=== PATIENT | male | born 1990 | race Two or more races ===

== ENCOUNTER 2022-06-03 10:19 | Emergency (ER) | payer OTHER, SELFPAY ==
[2022-06-03 10:24] VITALS: BP 128/83; PULSE 83; RESP 18; TEMP 36.6; O2SAT 97; BMI 33.9
--- NOTE | 2022-06-03 11:10 | ED_ITS ---
HPI - General Adult General Chief complaint: Upper Respiratory Symptoms Stated complaint: L arm pain/R shoulder pain Time Seen by Provider: 06/03/22 11:09 Source: patient Mode of arrival: ambulatory Limitations: no limitations History of Present Illness HPI narrative: Patient is a 31 year old assigned male at with no reported medical history presenting to the emergency department today with left wrist pain and right shoulder pain. Patient states that a few days ago he started having left wrist pain so he was using his right arm more and now he is having right shoulder pain and left wrist pain. Patient denies any dizziness, lightheadedness, abdominal pain, nausea, vomiting, fever, chills, blurry vision, double vision, loss of vision, chest pain, difficulty breathing, shortness of breath, back pain, night sweats, pain with urination, increased urinary frequency, increased urinary urgency, blood in his urine or stool, syncope or a near syncopal episode, recent trauma or falls, bowel incontinence, bladder incontinence, bowel retention, bladder retention, or any other complaints at this time. Onset (ago): day(s) Location: left, right and upper extremity Severity: mild Severity scale (1-10): 2 Quality: aching and dull Pain Consistency: intermittent Relieving factors: none Exacerbating factors: movement Associated symptoms: denies other symptoms Treatments prior to arrival: none Related Data Previous Rx's Medication Instructions Recorded prednisone 20 mg tablet 20 mg PO DAILY 7 days #7 tabs 06/03/22 Allergies Allergy/AdvReac Type Severity Reaction Status Date / Time No Known Allergies Allergy Verified 06/03/22 10:24 Review of Systems Constitutional: Constitutional: Reports no additional constitutional complaints, Denies chills, Denies fever(s) and Denies night sweats Eyes: Eyes: Reports no additional eye complaints, Denies blurry vision, Denies change in vision, Denies diplopia, Denies eye discharge, Denies loss of vision and Denies eye pain ENT: Denies dizziness Cardiovascular: Cardiovascular: Reports no additional cardiovascular complaints, Denies chest pain, Denies lightheadedness, Denies Loss of Consciousness and Denies dyspnea Respiratory: Respiratory: Reports no additional respiratory complaints and Denies dyspnea Gastrointestinal: Gastrointestinal: Reports no additional gastrointestinal complaints, Denies abdominal pain, Denies melena, Denies hematochezia, Denies change in bowel habits and Denies change in stool character Genitourinary: Genitourinary: Reports no additional male genitourinary complaints, Denies hematuria, Denies oliguria, Denies difficulty urinating, Denies dysuria, Denies urinary frequency, Denies urinary hesitancy, Denies urinary incontinence and Denies urinary urgency Musculoskeletal: Musculoskeletal: Reports no additional musculoskeletal complaints, Denies numbness and Denies tingling Comments: right shoulder pain, left wrist pain Neurologic: Denies dizziness, Denies loss of vision, Denies numbness and Denies tingling Psychiatric: Psychiatric: Reports no additional psychiatric complaints Endocrine: Endocrine: Reports no additional endocrine complaints Hematologic/Lymphatic: Hematologic/Lymphatic: Reports no additional hematologic/lymphatic complaints Allergic/Immunologic: Allergic/Immunologic: Reports no additional allergic/ immunologic complaints PMFSH Past Medical History Attestation statement: The following information was validated with the patient. Source: old records reviewed and nursing notes reviewed Social History Social History Advance Directives: No Advance Directives Information Provided: No Physical Exam ED Vital Signs: Vital Signs - 24 hr 06/03/22 10:24 Temperature 97.8 F Pulse Rate 83 Respiratory Rate 18 Blood Pressure 128/83 Pulse Oximetry 97 Oxygen Delivery Method Room Air BMI result Body Mass Index 33.9 Const General: cooperative, no acute distress, alert and awake Nutritional Appearance: well nourished Orientation/consciousness: patient oriented x3 Limitations: no limitations HENMT Head: Yes normal to inspection and Yes atraumatic Ears: hearing grossly normal bilaterally and external ears normal General nose exam: Normal external nose present, no nasal discharge noted and no epistaxis Face and sinus: Yes normal facial exam, No abrasion and No laceration Mouth: Normal oral and palatal mucosa present, no drooling and no muffled voice Eyes General: appearance normal, both eyes and all related structures Periorbital: periorbital findings normal Eyelids: Yes eyelids normal Conjunctivae: conjunctivae normal Pupils: Equal, round and reactive pupils present EOM: EOMs intact bilaterally Neck Neck: Yes normal visual inspection, Yes full ROM and Yes no lymphadenopathy Chest Chest palpation & inspection: normal inspection of the chest Resp Effort & Inspection: normal respiratory effort and able to speak in complete sentences Auscultation: clear to auscultation bilaterally Cardio Rate: regular rate Rhythm: regular rhythm GI Inspection: Yes normal to inspection Neuro General: patient oriented x3 and moves all extremities Cranial nerves: Yes Equal, round and reactive pupils present Cognition (Neuro): normal cognition Motor exam (neuro): 5/5 motor strength present throughout Sensory Exam: Normal double simultaneous stimulation for sensation Coordination: [id number] test normal Extrem General: Yes normal to inspection, Yes full ROM and Yes capillary refill normal Psych Appearance: grossly normal Mental Status: mental status grossly normal Affect: normal affect Attitude: cooperative Thought process: Normal thought process present Thought content: Normal thought content present Insight: Good insight present (Psych) Medical Decision Making Medical Decision Making MDM Narrative: Patient is a 31 year old assigned male at with no reported medical history presenting to the emergency department today with right shoulder and left wrist pain. Patient's physical exam was unremarkable. Patient's clinical presentation is most consistent with muscle strains. I explained my physical exam findings to the patient. I answered all questions asked by the patient. I stressed the importance of the patient taking his medication as prescribed. I stressed the importance of the patient following up with his primary care provider. I stressed the importance of the patient returning to the emergency department immediately if his symptoms were to worsen or if he were to develop any dizziness, shortness of breath, difficulty breathing, chest pain, blurry vision, loss of vision, nausea, vomiting, abdominal pain, fever, chills, back pain, or any other complaints. Patient verbalized agreement and understanding with this treatment plan and discharge. Differential Diagnosis The differential diagnosis associated with the presentation includes diagnosis of: muscle strain Discharge Plan Discharge Clinical Impression: Left wrist pain, Acute pain of right shoulder Patient Disposition: Home, Self-Care Instructions: Arm Pain (ED) Additional Instructions: Follow up with your primary care provider. If pain persists >2 weeks, follow up with an orthopedic provider. Return to the emergency department immediately if your symptoms worsen or if you develop any dizziness, shortness of breath, difficulty breathing, chest pain, blurry vision, loss of vision, nausea, vomiting, abdominal pain, fever, chills, back pain, or any other complaints. Prescriptions: New prednisone 20 mg tablet 20 mg PO DAILY 7 Days Qty: 7 0RF Referrals: [facility] [place] [facility] [Provider Group] (Call to establish and follow up with a primary care provider. If you already have a primary care provider, please follow up with them. ) [facility] [place] [facility] [Provider Group] (Call to establish and follow up with a primary care provider. If you already have a primary care provider, please follow up with them. ) [facility] [place] [facility] [Provider Group] (Call to establish and follow up with a primary care provider. If you already have a primary care provider, please follow up with them. ) [facility] [place] [facility] [Provider Group] (If pain persists >2 weeks, call to establish and follow up with an orthopedic provider.) Stand Alone Forms: Work/School Release Interventions: ED Discharge Assessment Last Done: 06/03/22 11:35 Discharge Date/Time: 06/03/22 11:36 Print Language: Thai
== END 2022-06-03 11:36 | disposition home or self-care (01) ==
LOC: HO.ED 11:24
PROVIDERS: Emergency Provider Emergency Medicine
DX: M25.532 Pain in left wrist (principal); G89.11 Acute pain due to trauma; M25.511 Pain in right shoulder
CPT/HCPCS: 99283

== ENCOUNTER 2022-10-24 07:43 | Emergency (ER) | payer MEDICAID, SELFPAY ==
--- NOTE | ~2022-10-24 | XR_ITS ---
EXAMINATION: XR HAND, LEFT CLINICAL INFORMATION: Left hand pain status post laceration. COMPARISON: None available. TECHNIQUE: PA, lateral, and oblique views of the left hand. An indicator arrow points to the lateral soft tissues. FINDINGS: Soft tissue deformity seen lateral to the fifth metacarpophalangeal joint space. No radiopaque foreign body is seen. There is no acute fracture or dislocation. The joint spaces are unremarkable. XR/XR hand LT 2V IMPRESSION: Soft tissue deformity adjacent to the fifth metacarpal without radiopaque foreign body or acute underlying osseous abnormality.
[2022-10-24 07:48] VITALS: BP 151/83; PULSE 93; RESP 16; TEMP 36.1; O2SAT 96; BMI 35.3
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
[2022-10-24] MEDS: Diphth,Pertus(ACell),Tet Adult 0.5 ML SYRINGE IM (09:07)
[2022-10-24] MEDS: Lidocaine HCl 1 % MPF 2 ML VIAL INFILTRATI ×2 (09:07)
== END 2022-10-24 10:35 | disposition home or self-care (01) ==
PROVIDERS: Emergency Provider Emergency Medicine
DX: S61.412A Laceration without foreign body of left hand, initial encounter (principal); X99.1XXA Assault by knife, initial encounter; Y93.89 Activity, other specified; Y92.511 Restaurant or cafe as the place of occurrence of the external cause; Y99.9 Unspecified external cause status
CPT/HCPCS: 12002; 73120; 90471; 90715; 99282; 99284

== ENCOUNTER 2022-10-30 09:40 | Emergency (ER) | payer MEDICAID, SELFPAY ==
[2022-10-30 09:54] VITALS: BP 154/76; PULSE 77; RESP 16; TEMP 36.8; O2SAT 98; BMI 35.3
--- NOTE | 2022-10-30 12:24 | ED_ITS ---
HPI - Fever General Chief Complaint: Wound/Laceration Stated Complaint: Fever Sweaty Time Seen by Provider: 10/30/22 12:06 Source: patient Mode of arrival: ambulatory Limitations: no limitations History of Present Illness HPI Narrative: 31 yo male here with complaints of waking feeling sweaty/tactile temps. Patient wants his left hand laceration checked (had sutures placed on 10/24, taking augmentin as prescrbed). Feels hand is healing well. denies redness, swelling drainage, odor. No other complaints. Related Data Previous Rx's Medication Instructions Recorded prednisone 20 mg tablet 20 mg PO DAILY 7 days #7 tabs 06/03/22 amoxicillin 875 mg-potassium 1 tab PO BID #14 tabs 10/24/22 clavulanate 125 mg tablet Allergies Allergy/AdvReac Type Severity Reaction Status Date / Time No Known Allergies Allergy Verified 10/30/22 09:58 Review of Systems Review of Systems: Yes all other systems are reviewed and are negative Constitutional: Constitutional: Reports no additional constitutional complaints, Denies body ache(s), Reports chills, Reports fever(s), Denies headache(s) and Denies weakness Eyes: Eyes: Reports no additional eye complaints and Denies change in vision ENT: Reports system reviewed and no additional complaints, except as documented, Denies dizziness, Denies headache(s), Denies nasal congestion, Denies nasal discharge and Denies neck pain Cardiovascular: Cardiovascular: Reports no additional cardiovascular complain ts, Denies chest pain, Denies leg edema and Denies dyspnea Respiratory: Respiratory: Reports no additional respiratory complaints, Denies cough and Denies dyspnea Gastrointestinal: Gastrointestinal: Reports no additional gastrointestinal complaints, Denies abdominal pain, Denies diarrhea, Denies nausea and Denies vomiting Genitourinary: Genitourinary: Denies urinary incontinence Musculoskeletal: Musculoskeletal: Reports no additional musculoskeletal complaints, Denies back pain, Denies arthralgias, Denies joint swelling, Denies neck pain, Denies numbness and Denies tingling Integumentary/Breasts: Skin/Breast: Reports system reviewed and no additional complaints, except as docu and Denies rash Neurologic: Reports system reviewed and no additional complaints, except as documented, Denies Abnormal speech present, Denies dizziness, Denies headache(s), Denies numbness, Denies tingling and Denies weakness [facility] Past Medical History Attestation statement: The following information was validated with the patient. Source: old records reviewed and nursing notes reviewed Social History Social History Advance Directives: No Advance Directives Information Provided: Yes Physical Exam Vital Signs: Vital Signs: Last Vital Signs Temp 98.2 F 10/30/22 09:54 Pulse 77 10/30/22 09:54 Resp 16 10/30/22 09:54 BP 154/76 H 10/30/22 09:54 Pulse Ox 98 10/30/22 09:54 O2 Del Method Room Air 10/30/22 09:54 BMI result Body Mass Index 35.3 Const: General: cooperative, healthy appearing, comfortable and no acute distress Orientation/consciousness: patient oriented x3 Limitations: no limitations HEENT: Head: Yes normal to inspection Ears: hearing grossly normal bilaterally General nose exam: Normal external nose present Face and sinus: Yes normal facial exam Mouth: Normal oral and palatal mucosa present Throat: Yes posterior oropharynx normal Eyes: General: appearance normal, both eyes and all related structures Pupils: Equal, round and reactive pupils present Neck: Neck: Yes normal visual inspection, Yes full ROM, Yes no lymphadenopathy and Yes no meningeal signs Chest: Chest palpation & inspection: normal inspection of the chest Resp: Effort & Inspection: normal respiratory effort Auscultation: clear to auscultation bilaterally Cardio: Rate: regular rate Rhythm: regular rhythm Peripheral pulses: Peripheral pulses 2+ throughout GI: Inspection: Yes normal to inspection Palpation (GI): Soft to palpation and nontender Auscultation: normal bowel sounds Back/Spine/Pelvis: Thoracic/Lumbar Spine: thoracic and lumbar spine normal to inspection Skin: General skin exam: no rashes or lesions noted Neuro: General: patient oriented x3, no meningeal signs, no focal motor deficits and normal sensation to monofilament Cranial nerves: Yes Equal, round and reactive pupils present Cognition (Neuro): normal cognition Speech: No Abnormal speech present Gait exam (Neuro): Normal gait present Motor exam (neuro): 5/5 motor strength present throughout Extrem: Other: laceration present left hand. no erythema, swelling, drainage. FROM of hand General: Yes normal to inspection Course Course Course Narrative: COVID and flu testing are negative. Likely viral syndrome. Laceration over the hand has no signs of infection. Recommend follow-up in a few days for suture removal. Reviewed worrisome signs and symptoms and when to return to the emergency room. Comfortable plan for discharge home Medical Decision Making Medical Decision Making [facility] Narrative: 31 yo male here with concern for tactile temp/ chills this morning with no other symptoms. Also wants left hand laceration checked. Normal exam. No focal finding. Afebrile here Will send testing for COVID in place Hand laceration is healing well. No signs of infection. I do recommend patient continue augmentin. It too soon to remove the sutures. Differential Diagnosis Differential Diagnoses: The differential diagnosis associated with the presentation includes Lab Data Labs: Lab Results 10/30/22 10/30/22 Range/Units 12:46 12:46 COVID-19 ([facility]) Negative (Negative) COVID-19 Clin Com See Note Influenza Type A ([facility]) Negative (Negative) Influenza Type B ([facility]) Negative (Negative) Influenza A & B Note See Note Discharge Plan Discharge Clinical Impression: Acute viral syndrome Patient Disposition: Home, Self-Care Instructions: Viral Syndrome (ED) Additional Instructions: Your testing for flu and COVID are negative. Return in 2-3 days to have your sutures removed. Continue your antibiotics Prescriptions: No Action prednisone 20 mg tablet 20 mg PO DAILY 7 Days Qty: 7 0RF amoxicillin-pot clavulanate 875-125 mg tablet 1 tab PO BID Qty: 14 0RF Referrals: Physician,None [Primary Care Provider] - 1 week Stand Alone Forms: Work/School Release Interventions: ED Discharge Assessment Last Done: 10/30/22 13:33 Discharge Date/Time: 10/30/22 13:34
[2022-10-30 13:15] LABS: COVID-19 Test Negative (Negative); IDNOW Serial# 08D9AD1C; IDNOW Serial# BCCEAD1C; Influenza A Negative (Negative); Influenza B2 Negative (Negative)
== END 2022-10-30 13:34 | disposition home or self-care (01) ==
PROVIDERS: Nurse Practitioner Family; Emergency Provider Emergency Medicine Emergency Medical Services
DX: B34.9 Viral infection, unspecified (principal); R50.9 Fever, unspecified; Z20.822 Contact with and (suspected) exposure to COVID-19
CPT/HCPCS: 87502; 87635; 99282; 99283

== ENCOUNTER 2022-11-04 11:21 | Emergency (ER) | payer MEDICAID, SELFPAY ==
[2022-11-04 11:53] VITALS: BP 135/64; PULSE 93; RESP 18; TEMP 36.8; O2SAT 98; BMI 35.3
--- NOTE | 2022-11-04 11:58 | ED_ITS ---
HPI - General Adult General Chief complaint: General Medical Stated complaint: Suture removal Time Seen by Provider: 11/04/22 11:53 Source: patient Mode of arrival: ambulatory Limitations: no limitations History of Present Illness HPI narrative: 31-year-old male here for suture removal from left hand which were placed on October 24. Patient with no complaints Related Data Previous Rx's Medication Instructions Recorded prednisone 20 mg tablet 20 mg PO DAILY 7 days #7 tabs 06/03/22 amoxicillin 875 mg-potassium 1 tab PO BID #14 tabs 10/24/22 clavulanate 125 mg tablet Allergies Allergy/AdvReac Type Severity Reaction Status Date / Time No Known Allergies Allergy Verified 11/04/22 11:53 Review of Systems Review of Systems: Yes all other systems are reviewed and are negative Constitutional: Constitutional: Reports no additional constitutional complaints, Denies body ache(s), Denies chills, Denies fever(s), Denies headache(s) and Denies weakness Eyes: Eyes: Reports no additional eye complaints and Denies change in vision ENT: Reports system reviewed and no additional complaints, except as d ocumented, Denies dizziness, Denies headache(s), Denies nasal congestion, Denies nasal discharge and Denies neck pain Cardiovascular: Cardiovascular: Reports no additional cardiovascular complaints, Denies chest pain, Denies leg edema and Denies dyspnea Respiratory: Respiratory: Reports no additional respiratory complaints, Denies cough and Denies dyspnea Gastrointestinal: Gastrointestinal: Reports no additional gastrointestinal complaints, Denies abdominal pain, Denies diarrhea, Denies nausea and Denies vomiting Genitourinary: Genitourinary: Denies urinary incontinence Musculoskeletal: Musculoskeletal: Reports no additional musculoskeletal complaints, Denies back pain, Denies arthralgias, Denies joint swelling, Denies neck pain, Denies numbness and Denies tingling Integumentary/Breasts: Skin/Breast: Reports system reviewed and no additional complaints, except as docu and Denies rash Neurologic: Reports system reviewed and no additional complaints, except as documented, Denies dizziness, Denies headache(s), Denies numbness, Denies tingling and Denies weakness [facility] Past Medical History Attestation statement: The following information was validated with the patient. Source: old records reviewed and nursing notes reviewed Social History Social History Advance Directives: No Advance Directives Information Provided: Yes Physical Exam ED Vital Signs: Vital Signs - 24 hr 11/04/22 11:53 Temperature 98.2 F Pulse Rate 93 Respiratory Rate 18 Blood Pressure 135/64 Pulse Oximetry 98 Oxygen Delivery Method Room Air BMI result Body Mass Index 35.3 Const General: cooperative, healthy appearing, comfortable and no acute distress Orientation/consciousness: patient oriented x3 Limitations: no limitations HENMT Head: Yes normal to inspection Ears: hearing grossly normal bilaterally Eyes General: appearance normal, both eyes and all related structures Neck Neck: Yes normal visual inspection Chest Chest palpation & inspection: normal inspection of the chest Resp Effort & Inspection: normal respiratory effort Cardio Peripheral pulses: Peripheral pulses 2+ throughout Skin Other: To left hand to the palmar aspect there is a laceration present with approximated edges and 8 sutures present with no signs of redness, drainage, swelling. Full range of motion of the hand with no difficulty with both passive and active range of Neuro General: patient oriented x3 Procedures Procedure Narrative Procedure Narrative: 8 sutures removed from left hand. Site was cleansed with saline and a topical dressing was applied Medical Decision Making Medical Decision Making [facility] Narrative: 31-year-old male here for suture removal. No complaints. Edges are approximated. No signs of infection. See procedure note Discharge Plan Discharge Clinical Impression: Visit for suture removal Patient Disposition: Home, Self-Care Instructions: Stitches Removal (ED) Prescriptions: No Action prednisone 20 mg tablet 20 mg PO DAILY 7 Days Qty: 7 0RF amoxicillin-pot clavulanate 875-125 mg tablet 1 tab PO BID Qty: 14 0RF
== END 2022-11-04 12:01 | disposition home or self-care (01) ==
PROVIDERS: Emergency Provider Student in an Organized Health Care Education/Training Program
DX: Z48.02 Encounter for removal of sutures (principal)
CPT/HCPCS: 99282

== ENCOUNTER 2023-07-03 08:19 | Emergency (ER) | payer OTHER, SELFPAY ==
--- NOTE | ~2023-07-03 | XR_ITS ---
EXAMINATION: XR LEFT ANKLE XR LEFT FOOT CLINICAL INFORMATION: No history of trauma. Left foot and ankle pain. COMPARISON: 01/07/2014 TECHNIQUE: AP, lateral, and oblique views of the left ankle were obtained. AP, lateral and oblique views of the left foot were obtained. FINDINGS: Alignment is anatomic. Ankle mortise is maintained. The talar dome is intact. Joint spaces are preserved. No displaced fracture or dislocation. XR/XR ankle LT 2V IMPRESSION: No acute abnormality.
--- NOTE | ~2023-07-03 | XR_ITS ---
EXAMINATION: XR LEFT ANKLE XR LEFT FOOT CLINICAL INFORMATION: No history of trauma. Left foot and ankle pain. COMPARISON: 01/07/2014 TECHNIQUE: AP, lateral, and oblique views of the left ankle were obtained. AP, lateral and oblique views of the left foot were obtained. FINDINGS: Alignment is anatomic. Ankle mortise is maintained. The talar dome is intact. Joint spaces are preserved. No displaced fracture or dislocation. XR/XR foot LT 2V IMPRESSION: No acute abnormality.
[2023-07-03 08:27] VITALS: BP 121/86; PULSE 82; RESP 18; TEMP 36.6; O2SAT 97; BMI 33.9
--- NOTE | 2023-07-03 08:51 | ED.LOWEXIN ---
HPI - Extremity Injury (Lower) General Chief Complaint: Extremity Injury, Lower Stated Complaint: l ankle inj Time Seen by Provider: 07/03/23 08:41 Source: patient Mode of arrival: ambulatory Limitations: no limitations History of Present Illness HPI Narrative: A 32-year-old male came in for evaluation of left ankle/ foot pain. Patient was playing basketball do not remember hurting his left ankle or foot yesterday, woke up today with swelling of the left ankle with severe pain, unable to bear weight on the left foot / ankle due to pain. Patient declined any trauma, ankle twist, fall. Related Data Previous Rx's Medication Instructions Recorded prednisone 20 mg tablet 20 mg PO DAILY 7 days #7 tabs 06/03/22 amoxicillin 875 mg-potassium 1 tab PO BID #14 tabs 10/24/22 clavulanate 125 mg tablet Allergies Allergy/AdvReac Type Severity Reaction Status Date / Time No Known Allergies Allergy Verified 07/03/23 08:27 Review of Systems Review of Systems: all other systems are reviewed and are negative Constitutional: Reports as per HPI and Reports no additional constitutional complaints Eyes: Reports as per HPI and Reports no additional eye complaints Reports system reviewed and no additional complaints, except as documented Cardiovascular: Reports as per HPI and Reports no additional cardiovascular complaints Respiratory: Reports as per HPI and Reports no additional respiratory complaints Gastrointestinal: Reports as per HPI and Reports no additional gastrointestinal complaints Genitourinary: Reports no additional female genitourinary complaints Musculoskeletal: Reports no additional musculoskeletal complaints Skin/Breast: Reports system reviewed and no additional complaints, except as docu Psychiatric: Reports no additional psychiatric complaints Endocrine: Reports no additional endocrine complaints Hematologic/Lymphatic: Reports no additional hematologic/lymphatic complaints Allergic/Immunologic: Reports no additional allergic/immunologic complaints Reports system reviewed and no additional complaints, except as documented and Reports Abnormal speech present [facility] Social History Social History Advance Directives: No Physical Exam Vital Signs: Vital Signs: Last Vital Signs Temp 98 F 07/03/23 08:27 Pulse 82 07/03/23 08:27 Resp 18 07/03/23 08:27 BP 121/86 07/03/23 08:27 Pulse Ox 97 07/03/23 08:27 O2 Del Method Room Air 07/03/23 08:27 BMI result Body Mass Index 33.9 Vital signs have been reviewed and appear to be correct. Blood pressure elevated. Heart rate normal. Respiratory rate normal. Temperature normal. Oxygen saturation normal. Appearance: Alert. Oriented X3. No acute distress. Head: Normal external exam. Normocephalic. Atraumatic. No Barlow signs noted. No raccoon eyes noted Eyes: PERRLA. EOMI. Conjunctiva and sclera normal. Eyelids normal. ENT: TM's Normal. Pharynx normal. Uvula midline. Moist mucous membranes. No trismus noted. No drooling noted. No muffled voice noted. Neck: Normal inspection. Neck supple. FROM. No adenopathy. Thyroid Normal. No meningeal signs. No neck mass noted. CVS: Normal heart rate and rhythm. Heart sound normal. No murmurs noted. Pulses normal throughout. Respiratory: No respiratory distress. Painless inspiration. Breath sounds normal. No wheezes/rales/rhonchi noted. Chest nontender. No accessory muscle usage noted or decreased air movement noted. Abdomen: Soft and nontender. Bowel sounds normal in all 4 quadrants. No distention noted. No organomegaly noted. No visible injury noted. Back: No CVA tenderness. Full range of motion noted. Skin: Skin warm and dry. Normal skin color. Normal skin turgor. No rashes/lesions/lacerations noted. Extremities: left ankle swelling tenderness over lateral malleolus, no deformity, no step-off. Neuro: Oriented X 3. Cranial nerve exam: II-XII are grossly intact No motor deficit. No sensory deficit. Reflexes normal. Course Reevaluation(s) Reevaluation #1: left ankle/ left foot pain likely sprain after playing basketball no definite trauma to the ankle or foot. Ice/ibuprofen/ crutches/ [place] bandage. Time: 09:56 Medications Administered Discontinued Medications Generic Name Dose Route Start Last Admin Trade Name Freq PRN Reason Stop Dose Admin Ibuprofen 800 mg 07/03/23 08:50 07/03/23 09:17 Ibuprofen 800 Mg Tablet PO 07/03/23 08:51 800 mg ONCE ONE Administration Medical Decision Making Differential Diagnosis Differential Diagnoses: The differential diagnosis associated with the presentation includes ( Left ankle fracture, left foot fracture, left ankle / foot sprain.) Admission/Observation Consideration of admission/observation: Escalation of care including admission/observation considered Independent Interpretation I performed an independent interpretation of an: Plain X-Ray ( Left ankle/foot: No acute abnormality) Radiology Impression Discussion of test interpretation with radiology: I have reviewed the radiologist's reading. Discharge Plan Discharge Clinical Impression: Ankle sprain and strain Patient Disposition: Home, Self-Care Instructions: Ankle Sprain (ED) Prescriptions: No Action prednisone 20 mg tablet 20 mg PO DAILY 7 Days Qty: 7 0RF amoxicillin-pot clavulanate 875-125 mg tablet 1 tab PO BID Qty: 14 0RF Referrals: Delroy Gregg MD [Physician] - Stand Alone Forms: Work/School Release
[2023-07-03] MEDS: Ibuprofen 800 MG TABLET PO (09:17)
== END 2023-07-03 10:10 | disposition home or self-care (01) ==
PROVIDERS: Emergency Provider Emergency Medicine
DX: S93.402A Sprain of unspecified ligament of left ankle, initial encounter (principal); S96.912A Strain of unspecified muscle and tendon at ankle and foot level, left foot, initial encounter; X50.3XXA Overexertion from repetitive movements, initial encounter; Y93.67 Activity, basketball; Y92.310 Basketball court as the place of occurrence of the external cause; Y99.9 Unspecified external cause status
CPT/HCPCS: 73600; 73620; 99283; 99284

== ENCOUNTER 2024-04-27 15:01 | Emergency (ER) | payer OTHER, SELFPAY ==
--- NOTE | ~2024-04-27 | CT_ITS ---
EXAMINATION: CT HEAD WITHOUT CONTRAST CLINICAL INFORMATION: Fall with head strike COMPARISON: None available. TECHNIQUE: Contiguous axial imaging was performed from the skull base to vertex without intravenous administration of contrast. This CT examination was performed using dose optimization techniques as appropriate, variously including the following: *Automated exposure control *Adjustment of mA and/or kV according to patient size (this includes techniques or standardized protocols for targeted exams where dose is matched to indication/reason for exam; i.e. extremities or head) *Use of iterative reconstruction technique DLP: 842 mGy-cm FINDINGS: No intra or extra-axial fluid collection, hemorrhage, mass, or mass effect. Sulci and ventricles are age-appropriate. Calvarium is intact. Note is made of moderate mucoperiosteal thickening within the right maxillary sinus. The retrobulbar regions are intact. CT/CT head/brain wo IV con IMPRESSION: No acute intracranial pathology. Electronically signed by: Marco Hay MD 04/27/2024 05:36 PM [facility]
--- NOTE | ~2024-04-27 | CT_ITS ---
EXAMINATION: CT CERVICAL SPINE WITHOUT CONTRAST CLINICAL INFORMATION: Fall with head strike. COMPARISON: None available. TECHNIQUE: Thin section axial imaging with sagittal and coronal reformats. This CT examination was performed using dose optimization techniques as appropriate, variously including the following: *Automated exposure control *Adjustment of mA and/or kV according to patient size (this includes techniques or standardized protocols for targeted exams where dose is matched to indication/reason for exam; i.e. extremities or head) *Use of iterative reconstruction technique DLP: 672 mGy-cm FINDINGS: There is moderate narrowing at C5-6 with anterior and posterior spurring. No fracture or destructive process. No evidence for encroachment on the spinal canal. CT/CT cervical spine wo IV con IMPRESSION: No fracture or destructive process. Fleischner guidelines were followed. Electronically signed by: Marco Hay MD 04/27/2024 05:42 PM [facility]
[2024-04-27 15:08] VITALS: BP 125/89; PULSE 102; O2SAT 96
[2024-04-27 15:14] VITALS: BP 127/79; PULSE 97; RESP 18; TEMP 36.9; O2SAT 94; BMI 33.9
--- NOTE | 2024-04-27 15:47 | ED.FALL ---
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 Reports slip and fall at home, striking the left side of his head on the edge of his dresser. He denies LOC. Not on anticoagulation. Reports the area immediately began to bleed, prompting him to call EMS. Admits to headache at present. No other concerns. He does arrive in cervical collar however states that he was not having any neck pain post fall. Denies any preceding symptoms of dizziness, vision changes, chest pain, shortness of breath, palpitations. Related Data Previous Rx's ?Medication ?Instructions ?Recorded prednisone 20 mg tablet 20 mg PO DAILY 7 days #7 tabs 06/03/22 amoxicillin 875 mg-potassium 1 tab PO BID #14 tabs 10/24/22 clavulanate 125 mg tablet ibuprofen 600 mg tablet 600 mg PO Q8H PRN pain (scale 04/27/24 score 1-3) #20 tabs Allergies Allergy/AdvReac Type Severity Reaction Status Date / Time No Known Allergies Allergy Verified 04/27/24 15:14 Review of Systems Review of Systems: Constitutional: No fever, chills, fatigue, night sweats, weight changes ENT/Mouth: No ear pain, hearing loss, nasal congestion, sinus pain, rhinorrhea, sore throat Eyes: No eye pain, swelling, redness, vision changes, discharge Cardio: No chest pain, palpitations, CABALLERO, orthopnea, peripheral edema Pulm: No SOB, cough, sputum, wheezing, dyspnea, hemoptysis GI: No nausea, vomiting, hematemesis, abdominal pain, diarrhea, constipation, hematochezia, melena : No irregular bleeding, dysuria, frequency, urgency, hesitancy, hematuria, flank pain, urinary flow changes, urinary incontinence or retention MSK: No back pain, neck pain, joint pain, myalgias Skin: No lesions, rashes, +scalp laceration Neuro: No weakness, numbness, paresthesias, LOC, dizziness, +headache Psych: No anxiety/panic, depression, SI/HI, AH/VH All other systems reviewed and are negative. [facility] Past Medical History Attestation statement: The following information was validated with the patient. Source: old records reviewed and nursing notes reviewed Social History Social History Advance Directives: No Advance Directives Information Provided: Yes Physical Exam Vital Signs: Vital Signs: Last Vital Signs Temp 98.4 F 04/27/24 15:14 Pulse 97 04/27/24 15:14 Resp 18 04/27/24 15:14 BP 127/79 04/27/24 15:14 Pulse Ox 94 04/27/24 15:14 O2 Del Method Room Air 04/27/24 15:14 BMI result Body Mass Index 33.9 vital signs stable General: Well appearing, in no acute distress. Skin: Warm, dry, intact. No rashes or lesions. Head: +5cm linear laceration noted to left parietal region. bleeding controlled. no involvement of deeper structures. no palpable hematoma or skull fracture. no raccon eyes. no battles sign. EENT: Hearing is intact b/l. Conjunctiva clear. PERRLA. EOM intact w/o entrapment. Moist mucous membranes.? Neck: no midline c spine tenderness or step off. FROM intact. Cardiac: Chest wall symmetric. RRR. Lungs: Normal respiratory effort without accessory muscle use. CTA bilaterally. Abdomen: Soft, non-tender, non-distended. No rebound tenderness or guarding Back: No midline spinous or paraspinal tenderness. No step off deformity. Ext: Upper and lower extremities atraumatic, without tenderness, deformity, swelling or erythema. Full ROM throughout. Neuro: AOx3. Normal speech. Strength 5/5 intact throughout. Sensation intact to light touch. NV intact distally. Reflexes 2+ bilaterally. Ambulating with steady gait. Psych: Appropriate mood and affect. Responds appropriately to questions. Course Course Course Narrative: 1749 -- CT head/ brain without bleed or skull fracture. Ct cervical spine without fracture or subluxation. scalp laceration extensively cleaned with iodine and saline. Seven cricket applied. Patient tolerated well. Bleeding controlled. Advised patient to return in 7-10 days for staple removal. tdap updated today. morphine given for pain control. he will be getting a ride home from family. Patient has remained stable throughout ED visit today. Discussed worrisome signs and symptoms and when to return to the ED. All questions answered at this time. Patient is agreeable with disposition and stable for discharge. Medications Administered Discontinued Medications Generic Name Dose Route Start Last Admin Trade Name Freq PRN Reason Stop Dose Admin Diphtheria/Tetanus/Acell Pertussis 0.5 ml 04/27/24 15:52 04/27/24 16:10 Diphth,Pertus(Acell),Tet Adult 0.5 Ml Syringe IM 04/27/24 15:53 0.5 ml .ONCE ONE Administration Morphine Sulfate 15 mg 04/27/24 15:52 04/27/24 16:03 Morphine Sulfate Immed Release 15 Mg Tablet PO 04/27/24 15:53 15 mg ONCE ONE Administration Procedures Laceration Laceration 1: Site: scalp Side (If applicable): left Size (cm): 5 Description: linear Depth: simple, single layer Pre-repair: wound explored, irrigated extensively and deep structures intact Skin layer closed with: other (cricket) Number of sutures: 7 Medical Decision Making Medical Decision Making MDM Narrative: 33 year old male with no significant pmhx presents to the ED today via EMS from home for evaluation of scalp laceration s/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 Vital signs stable. he is nontoxic appearing and in NAD. presents in cervical collar. on removal, there is no midline cervical spinous tenderness or step-off deformity. There is a 5 cm linear laceration noted to left parietal region. Bleeding controlled. Deeper structures intact. No palpable hematoma or skull fracture. EOMs intact without entrapment or pain. Exam is nonfocal. PERRLA. Differential diagnosis includes concussion, scalp laceration, abrasion, hematoma. Lower suspicion for CVA/TIA, ICH. Unlikely TBI, cervical fracture, skull fracture. Plan for imaging, pain control, Tdap booster, laceration repair, re-evaluation. Differential Diagnosis Differential Diagnoses: The differential diagnosis associated with the presentation includes as above. Admission/Observation not indicated. Independent Interpretation I performed an independent interpretation of an: CT Scan Interpretation: ct head/ brain without bleed or fracture ct cervical spine without fracture Radiology Impression Discussion of test interpretation with radiology: I have reviewed the radiologist's reading. Radiologist Impression: EXAMINATION: CT HEAD WITHOUT CONTRAST CLINICAL INFORMATION: Fall with head strike COMPARISON: None available. TECHNIQUE: Contiguous axial imaging was performed from the skull base to vertex without intravenous administration of contrast. This CT examination was performed using dose optimization techniques as appropriate, variously including the following: *Automated exposure control *Adjustment of mA and/or kV according to patient size (this includes techniques or standardized protocols for targeted exams where dose is matched to indication/reason for exam; i.e. extremities or head) *Use of iterative reconstruction technique DLP: 842 mGy-cm FINDINGS: No intra or extra-axial fluid collection, hemorrhage, mass, or mass effect. Sulci and ventricles are age-appropriate. Calvarium is intact. Note is made of moderate mucoperiosteal thickening within the right maxillary sinus. The retrobulbar regions are intact. CT/CT head/brain wo IV con IMPRESSION: No acute intracranial pathology. Electronically signed by: Marco Hay MD 04/27/2024 05:36 PM [facility] RP EXAMINATION: CT CERVICAL SPINE WITHOUT CONTRAST CLINICAL INFORMATION: Fall with head strike. COMPARISON: None available. TECHNIQUE: Thin section axial imaging with sagittal and coronal reformats. This CT examination was performed using dose optimization techniques as appropriate, variously including the following: *Automated exposure control *Adjustment of mA and/or kV according to patient size (this includes techniques or standardized protocols for targeted exams where dose is matched to indication/reason for exam; i.e. extremities or head) *Use of iterative reconstruction technique DLP: 672 mGy-cm FINDINGS: There is moderate narrowing at C5-6 with anterior and posterior spurring. No fracture or destructive process. No evidence for encroachment on the spinal canal. CT/CT cervical spine wo IV con IMPRESSION: No fracture or destructive process. Fleischner guidelines were followed. Electronically signed by: Marco Hay MD 04/27/2024 05:42 PM EST RP Independent Historian Clinical information obtained from an independent historian. History obtained from or confirmed by: EMS External Record Review External record reviewed: Inpatient record Prescription Management I considered prescription management with: Pain Medication Social Determinants Patient?s care significantly limited by Social Determinants of Health including: Other Social Determinant of Health Critical Care Time Critical Care Time Critical Care Time: No Discharge Plan Discharge Clinical Impression: Laceration of scalp, Head injury, Fall Patient Disposition: Home, Self-Care Instructions: Staple Care (ED) Additional Instructions: You have been evaluated in the Emergency Department today for a laceration to your scalp. The CT scan of your head and neck are normal. Your laceration was repaired in the ED with 7 cricket. Please keep the area surrounding the laceration clean and dry. Please keep the area out of the sunlight for the next 6 months to help prevent scarring.? If you develop redness or swelling at the site of your laceration please come back to the ER for a wound check. I recommend you take 600mg ibuprofen every 6 hours or tylenol 650mg every 6 hours as needed for pain. If needed, you can alternate these medications so that you take one medication every 3 hours. For example, at noon take ibuprofen, then at 3pm take tylenol, then at 6pm take ibuprofen. Please follow up with your primary care physician in 7-10 days for staple removal. You can also return to the ER or another urgent care facility for this service. Return to the Emergency Department if you experience discharge from your laceration, redness around your laceration, warmth around your laceration, fever, vomiting, numbness, tingling, or any other concerning symptoms. In the case of an emergency call 911. Prescriptions: New ibuprofen 600 mg tablet 600 mg PO Q8H PRN (Reason: pain (scale score 1-3)) Qty: 20 0RF No Action prednisone 20 mg tablet 20 mg PO DAILY 7 Days Qty: 7 0RF amoxicillin-pot clavulanate 875-125 mg tablet 1 tab PO BID Qty: 14 0RF Referrals: Montserrat Christianson MD [Primary Care Provider] - Stand Alone Forms: Work/School Release Print Language: German
[2024-04-27] MEDS: Morphine Sulfate Immed Release 15 MG TABLET PO (16:03)
[2024-04-27] MEDS: Diphth,Pertus(ACell),Tet Adult 0.5 ML SYRINGE IM (16:10)
[2024-04-27 17:57] VITALS: BP 127/79; PULSE 97; RESP 18; TEMP 36.9; O2SAT 94
== END 2024-04-27 17:57 | disposition home or self-care (01) ==
PROVIDERS: Emergency Provider Emergency Medicine; PCP Internal Medicine
DX: S01.01XA Laceration without foreign body of scalp, initial encounter (principal); W01.10XA Fall on same level from slipping, tripping and stumbling with subsequent striking against unspecified object, initial encounter; M54.2 Cervicalgia; R51.9 Headache, unspecified; Y93.89 Activity, other specified; Y92.89 Other specified places as the place of occurrence of the external cause; Y99.8 Other external cause status; Z23 Encounter for immunization; Z79.899 Other long term (current) drug therapy
CPT/HCPCS: 70450; 72125; 90471; 90715; 99283; 99285

== ENCOUNTER 2024-05-07 12:55 | Emergency (ER) | payer OTHER, SELFPAY ==
[2024-05-07 14:22] VITALS: BP 141/95; PULSE 90; RESP 16; TEMP 37.1; O2SAT 97; BMI 33.9
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
[2024-05-07 14:41] VITALS: BP 141/95; PULSE 90; RESP 16; TEMP 37.1; O2SAT 97
== END 2024-05-07 14:41 | disposition home or self-care (01) ==
PROVIDERS: Emergency Provider Student in an Organized Health Care Education/Training Program
DX: Z48.02 Encounter for removal of sutures (principal)
CPT/HCPCS: 99282

== ENCOUNTER 2024-10-29 12:54 | Emergency (ER) | payer OTHER, SELFPAY ==
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
[2024-10-29 13:00] VITALS: BP 140/89; PULSE 92; RESP 18; TEMP 36.8; O2SAT 97; BMI 36.9
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
--- OUTSIDE RECORDS SUMMARY | 2024-10-29 16:14 | XMS_ITS | Clinical Summary ---
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 I have francine swan 04/22/[address] you li ve. Do you have problems with any of the following? None of the above 04/22/2023 Food Insecurity Answer Date Recorded Within the past 12 months, y ou worried that your food would run out before you got money to buy more: Never True 04/22/2023 Within the past 12 months,th e food you bought just didn't last and you didn't have enough money to get more: Never True Transportation Answer Date Recorded In the past 12 months, has l ack of transportation kept you from medical appts, meetings, work or from getting things needed for daily living? No 04/22/2023 Utilities Answer Date Recorded In the past 12 months, has t he electric, gas, oil or water company threatened to shut off services in your home? No 04/22/2023 Sex and Gender Information Value Date Recorded Sex Assigned at Male 10/25/2022 11:51 AM EDT Legal Sex Male 11:51 AM EDT Gender Identity Male 10/25/2022 11:51 AM EDT Sexual Orientation Don't know 10/25/2022 11 :51 AM EDT Plan of Treatment Health Maintenance Due Date Last Done Comments Depression Screening 1990 HIV Screening 1990 Alcohol/Substance Use Screening 2002 Tobacco Screening 2002 Family Planning (PISQ) 2005 Hepatitis C Screening 2008 Hepatitis B Vaccines (1 of 3 - 19+ 3-dose series) 2009 SDOH Screening 01/29/2024 01/28/2023 COVID-19 Vaccine (1 - 2023-2 5 season) 2024 Influenza Vaccine (#1) 2024 DTaP/Tdap/Td Vaccines (2 - T d or Tdap) 10/24/2032 10/24/2022 Zoster Vaccines (1 of 2) 2040 RSV Patients and Pa tients Aged 60 years or older (1 - 1-dose 75+ series) 2065 HIB Vaccines Aged Out No longer eligi ble based on patient's age to complete this topic HPV Vaccines Aged Out No longer eligi ble based on patient's age to complete this topic Hepatitis A Vaccines Aged Out No long er eligible based on patient's age to complete this topic IPV Vaccines Aged Out No longer eligi ble based on patient's age to complete this topic Meningococcal Vaccine Aged Out No flako reanna eligible based on patient's age to complete this topic Pneumococcal Vaccine: Pediat rics (0 to 5 Years) and At-Risk Patients (6 to 49) Years) Aged Out No longer elig ible based on patient's age to complete this topic RSV under 20 months Aged Out No longe r eligible based on patient's age to complete this topic Rotavirus Vaccines Aged Out No longer eligible based on patient's age to complete this topic Insurance HSN PARTIAL
--- OUTSIDE RECORDS SUMMARY | 2024-10-29 16:14 | XMS_ITS | Encounter Summary ---
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 Role Phone Unavailable Primary Care Provider Unavailabl e Reason for Visit * Reason Onset Date Comments New Patient Appt 12/31/2022 Encounter Details Date Type Department Care Team (Late st Contact Info) Description 12/31/2022 Telephone [facility] [address] [place], [place] [phone] Tara Felton ANP [address] [place] [address] New Patient Appt Social History Tobacco Use Types Packs/Day Years Used Date Smoking Tobacco: Never Assessed Sex and Gender Information Value Date Recorded Sex Assigned at Male 10/25/2022 11:51 AM EDT Legal Sex Male 11:51 AM EDT Gender Identity Male 10/25/2022 11:51 AM EDT Sexual Orientation Don't know 10/25/2022 11 :51 AM EDT documented as of this encounter Miscellaneous Notes * Telephone Encounter - Naif Antonio - 12/31/2022 4:59 PM EDT AMIRA Doyle called pt to Offer [employer] appt. Pt demographics and insurance information were verified. Pt reports no medical conditions. Pt is not taking any medication at this time. Pt given [facility] appt with PCP ANGELA Felton on 02/06/2023 @ 10:30 am. Pt will be sent appt reminder card and medical release form and agrees to complete and to return to medical records prior to [facility] [employer] appt. documented in this encounter Plan of Treatment Not on file documented as of this encounter Visit Diagnoses Not on filedocumented in this encounter
[2024-10-29 16:25] VITALS: BP 142/91; PULSE 74; RESP 18; TEMP 36.2; O2SAT 98
[2024-10-29] MEDS: Ketorolac Tromethamine 30 MG/ML VIAL IM (17:57)
[2024-10-29 18:20] VITALS: BP 146/90; PULSE 76; RESP 16; TEMP 36.7; O2SAT 94
[2024-10-29 18:44] VITALS: BP 146/90; PULSE 76; RESP 16; TEMP 36.7; O2SAT 94
== END 2024-10-29 18:45 | disposition home or self-care (01) ==
PROVIDERS: Emergency Provider Emergency Medicine Emergency Medical Services
DX: M47.896 Other spondylosis, lumbar region (principal); T14.8XXA Other injury of unspecified body region, initial encounter; V43.52XA Car driver injured in collision with other type car in traffic accident, initial encounter; Y93.89 Activity, other specified; Y92.414 Local residential or business street as the place of occurrence of the external cause; Y99.9 Unspecified external cause status; M54.50 Low back pain, unspecified; M25.552 Pain in left hip
CPT/HCPCS: 72100; 73502; 96372; 99284; J1885

== ENCOUNTER → 2024-10-29 13:04 | Outpatient (BNV) | payer OTHER, SELFPAY | PROVIDERS: Visit Provider Radiology Diagnostic Radiology | DX: M25.552 Pain in left hip (principal); M47.895 Other spondylosis, thoracolumbar region | CPT/HCPCS: 72100; 73502 ==